=== PATIENT | female | born 1945 | race Caucasian/White ===

== ENCOUNTER 2017-12-01 10:47 | Day surgery (SDC) | payer MEDICARE ==
[2017-12-01] MEDS ORDERED: LIDOCAINE 2% (PF) 20 MG/ML 10 ML AMP INHALATION ONE (11:42)
[2017-12-01 11:44] VITALS: TEMP 97.6
[2017-12-01] MEDS ORDERED: LIDOCAINE 1% 20 ML VIAL (10MG/ML) FOR IV START INTRADERMA ONE (11:45)
[2017-12-01] MEDS ORDERED: LACTATED RINGERS 1,000 ML IV ONE (11:45)
[2017-12-01] MEDS ORDERED: ALBUTEROL NEB (CONC) 2.5 MG/0.5 ML INHALATION SCH (12:00)
[2017-12-01] MEDS ORDERED: LIDOCAINE 1% INJ 10MG/ML (20 ML MDV) ONE (12:20)
[2017-12-01] MEDS ORDERED: PROPOFOL 10 MG/ML 20 ML VIAL IV ONE (12:20)
[2017-12-01] MEDS ORDERED: MIDAZOLAM 2 MG/2 ML VIAL ONE (12:20)
--- NOTE | 2017-12-01 13:22 | PCN ---
PROCEDURE NOTE OPERATIVE REPORT: Bronchoscopy and bronchial washing. PREOPERATIVE DIAGNOSIS: Severe persistent cough, history of bronchial asthma. POSTOPERATIVE DIAGNOSIS: Acute exacerbation of severe persistent asthma. ANESTHESIA USED: Please refer to the CARDIOLOGY TECHNICIAN documentation, the patient had IV conscious sedation. PROCEDURE: Patient was prepared according to the bronchoscopy protocol. She was placed in a supine position, we monitored her O2 saturation via pulse oximetry. Blood pressure was intermittently monitored, and cardiac rhythm was monitored. After adequate IV conscious sedation, the right naris was locally anesthetized by instilling 2 mL of lidocaine. Then the bronchoscope was advanced through the right naris down to the area of the vocal cords, which were noted to be patent. Lidocaine applied over the vocal cords, the bronchoscope was advanced further down to the trachea. Thorough examination was done of the trachea, kimberlee, right upper lobe, right middle lobe, right lower lobe, left upper lobe, lingula, and left lower lobe. There was evidence of bronchitic mucosa, minimal nonpurulent secretions noted in the airways, and these were suctioned easily. Random bronchial washing was done from all the different areas of different lobes. Then bronchoscope was withdrawn from the airways. Procedure was well tolerated, and no evidence of any immediate complications. The mucosa was noted to be slightly bronchitic. Otherwise, no significant pathology was noted. MMODL / IJN: [id number] /
[2017-12-01 13:45] VITALS: BP 135/64; PULSE 66; RESP 20
[2017-12-01 17:53] LABS: Appearance,BF Clear; Color,BF Colorless; Nucleated Cells, Body Fluid 42 /uL
[2017-12-01 17:54] LABS: Mononuclear WBC,Body Fluid 12 %; Polynuclear WBC,Body Fluid 78 %; RBC, Body Fluid 18 /uL
== END 2017-12-01 14:02 | disposition home or self-care (01) ==
LOC: ORWHC2ENDO 10:47
PROVIDERS: ATTEND Internal Medicine
DX: J45.51 Severe persistent asthma with (acute) exacerbation (principal); I10 Essential (primary) hypertension; E78.00 Pure hypercholesterolemia, unspecified; K21.9 Gastro-esophageal reflux disease without esophagitis; Z79.51 Long term (current) use of inhaled steroids; Z79.899 Other long term (current) drug therapy
CPT/HCPCS: 94640; 87798 ×3; 87496; 87498; 87529; 88108; 88305; 89050; 87252; 87581; 87502; 87634; 87070; 87205; 87116; 87102; 87206; 31624; J2250; J2001; J2704

== ENCOUNTER → 2019-01-18 | Outpatient (CLI) | payer MEDICARE ==
[2019-01-18 16:54] LABS: Albumin/Globulin Ratio 1.6 (1.60-3.17); Anion Gap 7.5 mmol/L (4.00-12.00); Calcium 9.9 mg/dL (8.7-10.3); Carbon Dioxide 28.5 mmol/L (21.6-31.8); Globulin 2.5 g/dL (1.6-3.3); Potassium 4.4 mmol/L (3.5-5.5); Total Bilirubin 0.5 mg/dL (0.2-1.2); Total Protein 6.5 g/dL (6.2-8.2)
== END | disposition home or self-care (01) ==
LOC: LABWHC1 10:50
PROVIDERS: ATTEND Nurse Practitioner
DX: I10 Essential (primary) hypertension (principal); Z79.899 Other long term (current) drug therapy
CPT/HCPCS: 36415; 80053

== ENCOUNTER → 2020-11-05 | Day surgery (SDC) | payer MEDICARE ==
[~2020-11-05] MED LIST: LACTATED RINGERS 1,000 ML IV SCH; LIDOCAINE 1% (10MG/ML) FOR IV START INTRADERMA PRN; PROPOFOL 10 MG/ML 20 ML VIAL IV ONE
[2020-11-05 09:40] VITALS: TEMP 97.6
--- NOTE | 2020-11-05 11:47 | P.PCN ---
Date of Procedure: 11/05/20 Description of Procedure: BRIEF HISTORY: Patient is a 74-year-old female presenting for outpatient colonoscopy for evaluation of positive Cologard. The patient reports last colonoscopy 7 years ago. She does report polyps in the past. She reports she also had outpatient testing with Cologard which was positive and that she is presented for further evaluation. Her father did have colon cancer. PROCEDURE PERFORMED: Colonoscopy with polypectomy. PREOPERATIVE DIAGNOSIS: Positive Cologard, patient reports last colonoscopy approximately 7 years ago, she does report colon cancer in her father. ESTIMATED BLOOD LOSS: Minimal. IV sedation per Anesthesia. PROCEDURE: After informed consent was obtained, the patient, was brought into the endoscopy unit. IV sedation was administered by Anesthesia under continuous monitoring. Digital rectal examination was normal. Initially the Olympus CF-190 flexible video colonoscope was then inserted in the rectum, gradually advanced into the cecum without any difficulty. Careful examination was performed as the scope was gradually being withdrawn. Ileocecal valve and the appendiceal orifice were visualized and appeared normal. Prep was excellent. Mucosa of the cecum, ascending colon, transverse colon, descending colon, sigmoid colon, and rectum appeared normal. diminutive polyps measuring 1-2 mm in size removed from the ascending colon and hepatic flexure with cold forcep polypectomy. Pedunculated 13 mm sigmoid colon polyp removed with hot snare polypectomy. Retroflexion was performed in the rectum and no lesions were seen. The patient tolerated the procedure well. IMPRESSION: Large pedunculated sigmoid colon polyp removed with hot snare polypectomy. Diminutive polyps removed with cold forcep polypectomy from the ascending colon and hepatic flexure. RECOMMENDATIONS: Findings of this examination were discussed with the patient.. Okay to resume diet. Okay to resume medications. Await pathology from polypectomies. Recommend repeat colonoscopy in 3 years for high-risk colon polyps, pending pathology from polypectomy
[2020-11-05 11:58] VITALS: BP 117/75; PULSE 67; RESP 16
== END ==
LOC: ORWHC2ENDO 09:04
PROVIDERS: ATTEND Internal Medicine
DX: D12.3 Benign neoplasm of transverse colon (principal); D12.5 Benign neoplasm of sigmoid colon; Z86.010 Personal history of colon polyps; Z80.0 Family history of malignant neoplasm of digestive organs; Z79.899 Other long term (current) drug therapy; Z98.84 Bariatric surgery status; Z90.49 Acquired absence of other specified parts of digestive tract; Z90.710 Acquired absence of both cervix and uterus; Z98.42 Cataract extraction status, left eye; Z98.41 Cataract extraction status, right eye; I10 Essential (primary) hypertension; E78.5 Hyperlipidemia, unspecified; J45.909 Unspecified asthma, uncomplicated; K21.9 Gastro-esophageal reflux disease without esophagitis
CPT/HCPCS: 45380; 45385; J2704; 88305

== ENCOUNTER → 2023-12-02 | Outpatient (CLI) | payer MEDICARE ==
[2023-12-02 13:36] LABS: African American GFR (CKD) 43 (>60 ml/min/1.73 sqM); Blood Urea Nitrogen 26 mg/dL (7-17); Non-African American GFR(CKD) 38 (>60 ml/min/1.73 sqM)
--- NOTE | 2023-12-02 14:51 | CT ---
Exam: CT Chest without contrast. Date: 12/02/2023. Comparison: None History: Chronic cough. Technique: CT examination of the chest was performed without contrast. Coronal and sagittal reformats were performed. CT dose lowering techniques were used, to include: automated exposure control, adjus tment for patient size, and/or use of iterative reconstruction. FINDINGS: Mediastinum and Keila: There is no axillary, mediastinal or hilar lymphadenopathy. Pleural and Pericardial spaces: There are no pleural or pericardial effusions. Upper Abdomen: Gallbladder surgically absent. There is a small sliding hiatal hernia. The visualized upper abdomen otherwise appears unremarkable. Cardiovascular: There is mild vascular calcification within the thoracic aorta without evidence of an eurysmal dilation. There are moderate diffuse coronary artery calcifications. Lung Parenchyma and Airways: There is a 9.9 mm right lower lobe pulmonary nodule on series 4 image 34 . This previously measured 6 mm. There is a 3.7 mm left lower lobe nodule on series 4 image 21. This is new since the previous examination. There is scattered mild bronchial wall thickening which likely relates to inflammatory airway changes. Subpleural areas of reticulation are also likely chronic. Bones: There are osteophytes are seen anteriorly with findings of diffuse idiopathic skeletal hyperos tosis. The bones are diffusely demineralized. There are no acute osseous abnormalities. IMPRESSION: 1. Slight decrease in size of the right lower lobe pulmonary nodule in the left lower lobe pulmonary nodule. Follow-up in 6 months is recommended. 2. Coronary artery calcifications. 3. Small right pleural effusion. 4. Inflammatory airway changes.
== END | disposition home or self-care (01) ==
LOC: RADCTMAIN 12:53
PROVIDERS: ATTEND Internal Medicine
DX: J90 Pleural effusion, not elsewhere classified (principal); I25.10 Atherosclerotic heart disease of native coronary artery without angina pectoris; J98.4 Other disorders of lung; R91.1 Solitary pulmonary nodule
CPT/HCPCS: 36415; 71250; 82565; 84520

== ENCOUNTER → 2024-03-21 | Outpatient (CLI) | payer MEDICARE ==
[2024-03-21 15:35] LABS: Basophils % (A) 1 %; Eosinophils # (A) 0.1 k/uL (0-0.7); Eosinophils % (A) 1 %; HCT 43.8 % (34.0-46.0); HGB 13.7 gm/dL (11.4-16.0); Lymphocytes # (A) 2.3 k/uL (1.0-4.8); Lymphocytes % (A) 29 %; MCH 28.4 pg (25.0-35.0); MCHC 31.3 g/dL (31.0-37.0); MCV 90.8 fL (80.0-100.0); Mean Platelet Volume 7.4; Monocytes # (A) 0.8 k/uL (0-1.0); Monocytes % (A) 10 %; Neutrophils # (A) 4.7 k/uL (1.3-7.7); Neutrophils % (A) 59 %; Platelet Count 266 k/uL (150-450); RBC 4.83 m/uL (3.80-5.40); RDW 14.5 % (11.5-15.5)
[2024-03-21 15:41] LABS: Total Eosinophil Count 641 #EOS/uL (150-300)
[2024-03-21 22:28] LABS: Alternaria alternata IgE 0.79 kU/L; Aspergillus fumagatus IgE <0.10 kU/L; Birch IgE <0.10 kU/L; Cat Epith & Dander IgE 0.67 kU/L; Cladosporian herbarum IgE <0.10 kU/L; Cockroach IgE <0.10 kU/L; Dermato. farinae IgE 0.11 kU/L; Dog Dander IgE <0.10 kU/L; Elm IgE <0.10 kU/L; Maple (Box Elder) IgE 0.94 kU/L; Oak IgE <0.10 kU/L; Ragweed,Common IgE 0.15 kU/L; Red Top (Bentgrass) IgE <0.10 kU/L
== END | disposition home or self-care (01) ==
LOC: LABWHC1 14:14
PROVIDERS: ATTEND Internal Medicine
DX: J45.909 Unspecified asthma, uncomplicated (principal)
CPT/HCPCS: 36415; 82785; 85008; 85025; 86003

== ENCOUNTER → 2024-07-25 | Outpatient (CLI) | payer MEDICARE ==
--- NOTE | 2024-07-25 14:27 | CT ---
EXAMINATION TYPE: CT chest wo con CT DLP: 785 mGycm, Automated exposure control for dose reduction was used. DATE OF EXAM: 07/25/2024 1:30 PM COMPARISON: CT chest 12/04/2023, 02/20/2024 CLINICAL INDICATION:Female, 78 years old with history of R91.1 LUNG NODULE; PHH, nodule/nicole TECHNIQUE: Multiple axial images were obtained through the chest without IV contrast. Lack of IV or o ral contrast limits evaluation of solid and hollow organ viscera. . Coronal reformats reviewed. FINDINGS: LUNGS/ PLEURA: No pleural effusion, pneumothorax, focal consolidation. Similar likely chronic subple ural areas of reticulation. Stable scattered pulmonary nodules from prior examination. Examples inclu ded a left lower lobe superior segment 3 mm nodule (series 4, image 24), right mid lung 2 mm pulmonar y nodule (series 4, 28), and a right upper lobe 4.7 mm pulmonary nodule (series 4, image 22), and a r ight lower lobe 9.8 mm pulmonary nodule (series 4, image 34). No new or larger pulmonary nodules defi nitively visualized. AIRWAY: Patent and unremarkable.. HEART: Size within normal limits. No pericardial effusion. Small coronary arterial calcifications. MEDIASTINUM: No gross evidence of adenopathy. VASCULATURE: No aortic aneurysm. Mild atherosclerotic calcification of the aorta and its branches. MUSCULOSKELETAL: No acute osseous abnormalities. Findings of diffuse idiopathic skeletal hyperostosis . Bones are diffusely demineralized. SOFT TISSUES/LYMPH NODES: Unremarkable. LOWER NECK: No significant findings. UPPER ABDOMEN: Gallbladder is surgically absent. Postsurgical changes of the GE junction with small h iatal hernia. IMPRESSION: Stable few scattered pulmonary nodules with largest measuring up to 9.8 mm. This is increased in size from prior CT in 2013 when it measured 5[address] is recommended. [facility], , 07/25/2024 2:24 PM
== END | disposition home or self-care (01) ==
LOC: RADCTMAIN 13:11
PROVIDERS: ATTEND Internal Medicine
CPT/HCPCS: 71250